=== PATIENT | female | born 1960 | race Caucasian/White ===

== ENCOUNTER 2017-12-13 09:46 | Emergency (ER) | payer BC ==
[~2017-12-13] VITALS: Ht 154.9 cm; Wt 83.0 kg
[2017-12-13] MEDS ORDERED: KETOROLAC TROMETHAMINE 30 MG/ML VIAL IV STA (10:00)
[2017-12-13] MEDS ORDERED: ONDANSETRON HCL INJ 2 MG/ML VIAL IV STA (10:00)
[2017-12-13] MEDS ORDERED: DICYCLOMINE HCL 20 MG/2 ML VIAL IM ONE (10:00)
[2017-12-13 10:39] LABS: BILIRUBIN,URINE NEGATIVE (NEGATIVE); KETONES,URINE NEGATIVE (NEGATIVE); LEUKOCYTE ESTERASE ,URINE NEGATIVE (NEGATIVE); NITRITE,URINE NEGATIVE (NEGATIVE); PROTEIN,URINE DIPSTICK NEGATIVE (NEGATIVE); URINE UROBILINOGEN 0.2 mg/dL (0.2 - 1)
[2017-12-13 10:40] LABS: CLARITY,URINE CLEAR (CLEAR); COLOR,URINE YELLOW (YELLOW)
--- NOTE | 2017-12-13 11:07 | Diagnostic Imaging Report ---
PROCEDURE: CT ABDOMEN AND PELVIS WITHOUT CONTRAST COMPARISON:None. INDICATIONS:Right flank pain TECHNIQUE: Stone protocol Volumetric CT abdomen and pelvis. No intravenous or enteric contrast. Multiplanar reformatted images. DLP: 774.77 FINDINGS: Clear lung bases. No pleural effusions. Normal heart size. Liver: The normal Gallbladder: Normal Pancreas: Normal Spleen: Normal Adrenal glands: Normal Urinary bladder: Normal Uterus and adnexa colon normal Kidneys and ureters: Right: 5 mm stone at the distal right ureter approximately 1 cm from the ureterovesicular junction. Resulting moderate hydronephrosis and perinephric inflammation. Left: Normal. Specifically, no stones. Bowel: Normal caliber. Peritoneum: Normal Vasculature: Moderate scattered atherosclerosis. Lymph nodes: Normal Skeleton: Intact. Degenerative disc disease predominantly at L4-L5 and L5-S1. Bilateral L5 pseudoarthrosis. Soft tissues: Normal CONCLUSION: 5 mm stone at the distal right ureter with accompanying moderate hydronephrosis. Dictated by: Georges Rebolledo M.D. on 12/13/2017 at 11:06 Electronically approved by: Georges Rebolledo M.D. on 12/13/2017 at 11:06
[2017-12-13 11:16] LABS: BACTERIA,URINE RARE /HPF; EPITHELIAL CELLS,URINE FEW /LPF; TRANSITIONAL EPI CELLS,URINE RARE
[2017-12-13 11:23] LABS: BASOPHILS % 0.3 % (0.0-1.0); EOSINOPHILS # (AUTO) 0.1 (0.0-0.4); HEMATOCRIT 37.7 % (34.2-44.1); HEMOGLOBIN 12.5 g/dL (12.0-16.0); LYMPHOCYTES # (AUTO) 1.3 (1.0-3.2); LYMPHOCYTES % 10.5 % (18.0-39.1); MEAN CORPUSCULAR HEMOGLOBIN 28.2 pg (28-32); MEAN CORPUSCULAR HGB CONC 33.2 g/dL (31-35); MEAN CORPUSCULAR VOLUME 84.9 fL (81-99); MONOCYTES # (AUTO) 0.7 (0.2-0.8); MONOCYTES % 5.5 % (4.4-11.3); NEUTROPHILS # (AUTO) 9.8 (2.1-6.9); NEUTROPHILS % 82.4 % (38.7-80.0); PLATELET COUNT 445 x10e3/uL (140-360); RED BLOOD COUNT 4.44 x10e6/uL (3.6-5.1); RED CELL DISTRIBUTION WIDTH 11.9 % (11.7-14.4)
[2017-12-13 11:36] LABS: ALBUMIN 4.2 g/dL (3.5-5.0); ALBUMIN/GLOBULIN RATIO 1.2 (0.8-2.0); CALCIUM 9.7 mg/dL (8.4-10.2); CREATININE, SERUM 1.2 mg/dL (0.57-1.11)
[2017-12-13 12:32] VITALS: BP 122/57
[2017-12-19] MEDS ORDERED: TRIAMTERENE-HCTZ1 EA PO (17:40)
[2017-12-19] MEDS ORDERED: FENOFIBRATE145 MG (17:40)
[2017-12-19] MEDS ORDERED: LOSARTAN POTAS100 MG PO (17:40)
[2017-12-19] MEDS ORDERED: ULTRAM50 MG PO (17:43)
[2017-12-19] MEDS ORDERED: METFORMIN HCL500 MG PO (17:43)
[2017-12-19] MEDS ORDERED: GABAPENTIN300 MG PO (17:43)
[2017-12-19] MEDS ORDERED: CYCLOBENZAPRINE10 MG PO (17:43)
[2017-12-19] MEDS ORDERED: ATORVASTATIN CA10 MG PO (17:43)
[2017-12-19] MEDS ORDERED: LEVOTHYROXINE50 MCG PO (17:43)
[2017-12-19] MEDS ORDERED: NORCO 7.5-3251 EACH PO (17:44)
== END 2017-12-13 12:44 | disposition home or self-care (01) ==
LOC: ER 09:46
DX: R10.9 Unspecified abdominal pain (principal); M54.9 Dorsalgia, unspecified; R11.0 Nausea; N13.2 Hydronephrosis with renal and ureteral calculous obstruction
CPT/HCPCS: 36415; 74176; 80053; 81001; 85025; 87086; 99284; J0500; J1885; J2405

== ENCOUNTER → 2017-12-23 | Day surgery (SDC) | payer BC ==
[2017-12-19 14:47] LABS: ANION GAP 15.6 mmol/L (8-16); CALCIUM 10.5 mg/dL (8.4-10.2); CREATININE, SERUM 1.14 mg/dL (0.57-1.11); POTASSIUM 3.6 mmol/L (3.5-5.1)
[~2017-12-23] MED LIST: ATORVASTATIN CA10 MG PO; CEFTRIAXONE SOD 1 GM VIAL ONE; CYCLOBENZAPRINE10 MG PO; DEXAMETHASONE SOD PHOS INJ 4 MG/ML VIAL ONE; FENOFIBRATE145 MG; FENTANYL CITRATE/PF 100MCG/2 ML INJ ONE; GABAPENTIN300 MG PO; IOPAMIDOL 610MG/1ML 300 MG/ML VIAL IV ONE; LEVOTHYROXINE50 MCG PO; LIDOCAINE HCL 2% LOCAL INJ 5 ML SDV VIAL INJ ONE; LOSARTAN POTAS100 MG PO; METFORMIN HCL500 MG PO; MIDAZOLAM HCL 2 MG/2 ML VIAL ONE; NORCO 7.5-3251 EACH PO; ONDANSETRON HCL INJ 2 MG/ML VIAL ONE; PROPOFOL IV EMULSION 10 MG/ML 20 ML VIAL ONE; SEVOFLURANE INHAL SOLN 250 ML PEN BTL ONE; TRIAMTERENE-HCTZ1 EA PO; ULTRAM50 MG PO
--- OUTSIDE RECORDS SUMMARY | 2017-12-23 07:38 | XMS REPORT ---
Author Author [facility] Address Unknown Phone Unavailable Care Team Providers Care Sharepoint Web Developer Name Role Phone HEBERT NASH Unavailable Unavailable Problems This patient has no known problems. Allergies, Adverse Reactions, Alerts This patient has no known allergies or adverse reactions. Medications This patient has no known medications. Results Test Description Test Time Test Comments Text Results Atomic Results Result Comments CT ABDOMEN/PELVIS WO [place] [address] Patient Name: CARI ROMERO MR #: [id number] : 1960 Age/Sex: 57/F Req #: [id number] Adm Physician: Ordered by: HEBERT NASH MD Report #: [id number] Location: ER Room/Bed: Procedure: [id number] CT/CT ABDOMEN/PELVIS WO Exam Date: 12/13/17 Exam Time: 1019 REPORT STATUS: Signed PROCEDURE: CT ABDOMEN AND PELVIS WITHOUT CONTRAST COMPARISON: None. INDICATIONS: Right flank pain TECHNIQUE: Stone protocol Volumetric CT abdomen and pelvis. No intravenous or enteric contrast. Multiplanar reformatted images. DLP: 774.77 FINDINGS: Clear lung bases. No pleural effusions. Normal heart size. Liver: The normal Gallbladder: Normal Pancreas: Normal Spleen: Normal Adrenal glands: Normal Urinary bladder: Normal Uterus and adnexa colon normal Kidneys and ureters: Right: 5 mm stone at the distal right ureter approximately 1 cm from the ureterovesicular junction. Resulting moderate hydronephrosis and perinephric inflammation. Left: Normal. Specifically, no stones. Bowel: Normal caliber. Peritoneum: Normal Vasculature: Moderate scattered atherosclerosis. Lymph nodes: Normal Skeleton: Intact. Degenerative disc disease predominantly at L4-L5 and L5-S1. Bilateral L5 pseudoarthrosis. Soft tissues: Normal CONCLUSION: 5 mm stone at the distal right ureter with accompanying moderate hydronephrosis. Dictated by: Susy Rebolledo M.D. on 12/13/2017 at 11:06 Electronically approved by: Susy Rebolledo M.D. on 12/13/2017 at 11:06 Dictated By: SUSY REBOLLEDO MD 1106 Transcribed By: DAVID on 1106 COPY TO: HEBERT NASH MD
--- OUTSIDE RECORDS SUMMARY | 2017-12-23 07:38 | XMS REPORT | Continuity of Care Document ---
Author Author [facility] Organization [facility] Address [address] [place] [address] Phone Unavailable Care Team Providers Care Interactive Project Manager Name Role Phone NONSTAFF PCP Unavailable Insurance Providers Guarantor NickCari Address [address] [place] [address] Email [email or web address] Policy Number [id number] Subscriber's Name Cari Romero Relationship 18 Self / Same As Patient Group Number [id number] Group Name [facility] Effective Date 08 Advance Directives Directive Response Recorded Date/Time Does the patient have an advance directive? No 12/31/09 12:37pm If yes, is advance directive on file with [facility]? No 12/31/09 12:37pm If not on file with [facility] will patient provide a copy? No 01/11/16 10:26am Problems No problem information available. Medications No medication information available. Social History Smoking Status Start Date Stop Date Never Smoker Hospital Discharge Instructions No hospital discharge instruction information available. Plan of Care Discharge Date 12/13/17 12:44pm Disposition HOME, SELF-CARE Condition at Discharge Stable Instructions/Education Provided Kidney Stones Forms Provided Work/School Excuse Prescriptions See Medication Section Referrals Desiree Hayes Order Date: Call for an appointment TIKI HENNING MD Order Date: Call for an appointment Address: [address] [place] [address] Additional Instructions/Education Take medication as prescribed Follow up with Dr. Henning in a couple of days Functional Status No functional status information available. Allergies, Adverse Reactions, Alerts Allergen Type Severity Reaction Status Last Updated Sulfa (Sulfonamide Antibiotics) Allergy Mild Active 12/31/09 Immunizations No immunization information available. Vital Signs Acute Vital Signs Vital Response Date/Time Pulse Pulse Rate (adult) 80 bpm (60 - 90) 12/13/2017 12:32pm Respiratory Rate 18 bpm (12 - 24) 12/13/2017 12:32pm Blood Pressure 122/57 mm Hg 12/13/2017 12:32pm Height 5 ft 1 in 12/13/2017 9:51am Weight 183 lb 12/13/2017 9:51am Body Mass Index 34.6 kg/m^2 12/13/2017 9:51am Results Laboratory Results Test Name Result Units Flags Reference Collection Date/Time Result Date/ Time Comments White Blood Count 11.95 x10e3/uL H 4.8-10.8 12/13/2017 10:40am 2017 11:28am Red Blood Count 4.44 x10e6/uL 3.6-5.1 12/13/2017 10:40am 12/13/2017 11: 28am Hemoglobin 12.5 g/dL 12.0-16.0 12/13/2017 10:40am 12/13/2017 11:28am Hematocrit 37.7 % 34.2-44.1 12/13/2017 10:40am 12/13/2017 11:28am Mean Corpuscular Volume 84.9 fL 81-99 12/13/2017 10:40am 12/13/2017 11: 28am Mean Corpuscular Hemoglobin 28.2 pg 28-32 12/13/2017 10:40am 2017 11:28am Mean Corpuscular Hemoglobin Concent 33.2 g/dL 31-35 12/13/2017 10:40am 12/13/2017 11:28am Red Cell Distribution Width 11.9 % 11.7-14.4 12/13/2017 10:40am 2017 11:28am Platelet Count 445 x10e3/uL H 140-360 12/13/2017 10:40am 12/13/2017 11: 28am Neutrophils (%) (Auto) 82.4 % H 38.7-80.0 12/13/2017 10:40am 12/13/2017 11:28am Lymphocytes (%) (Auto) 10.5 % L 18.0-39.1 12/13/2017 10:40am 12/13/2017 11:28am Monocytes (%) (Auto) 5.5 % 4.4-11.3 12/13/2017 10:40am 12/13/2017 11: 28am Eosinophils (%) (Auto) 1.0 % 0.0-6.0 12/13/2017 10:40am 12/13/2017 11: 28am Basophils (%) (Auto) 0.3 % 0.0-1.0 12/13/2017 10:40am 12/13/2017 11: 28am IM GRANULOCYTES % 0.3 % 0.0-1.0 12/13/2017 10:40am 12/13/2017 11:28am Neutrophils # (Auto) 9.8 H 2.1-6.9 12/13/2017 10:40am 12/13/2017 11: 28am Lymphocytes # (Auto) 1.3 1.0-3.2 12/13/2017 10:40am 12/13/2017 11: 28am Monocytes # (Auto) 0.7 0.2-0.8 12/13/2017 10:40am 12/13/2017 11:28am Eosinophils # (Auto) 0.1 0.0-0.4 12/13/2017 10:40am 12/13/2017 11: 28am Basophils # (Auto) 0.0 0.0-0.1 12/13/2017 10:40am 12/13/2017 11:28am Absolute Immature Granulocyte (auto 0.03 x10e3/uL 0-0.1 12/13/2017 10: 40am 12/13/2017 11:28am Urine Color YELLOW YELLOW 12/13/2017 9:56am 12/13/2017 10:40am Urine Clarity CLEAR CLEAR 12/13/2017 9:56am 12/13/2017 10:40am Urine Specific [place] 1.015 1.010-1.025 12/13/2017 9:56am 2017 10:40am Urine pH 7 5 - 7 12/13/2017 9:56am 12/13/2017 10:40am Urine Leukocyte Esterase NEGATIVE NEGATIVE 12/13/2017 9:56am 2017 10:40am Urine Nitrite NEGATIVE NEGATIVE 12/13/2017 9:56am 12/13/2017 10:40am Urine Protein NEGATIVE NEGATIVE 12/13/2017 9:56am 12/13/2017 10:40am Urine Glucose (UA) TRACE H NEGATIVE 12/13/2017 9:56am 12/13/2017 10: 40am Urine Ketones NEGATIVE NEGATIVE 12/13/2017 9:56am 12/13/2017 10:40am Urine Urobilinogen 0.2 mg/dL 0.2 - 1 12/13/2017 9:56am 12/13/2017 10: 40am Urine Bilirubin NEGATIVE NEGATIVE 12/13/2017 9:56am 12/13/2017 10: 40am Urine Blood 1+ H NEGATIVE 12/13/2017 9:56am 12/13/2017 10:40am Urine WBC NONE /HPF 0-5 12/13/2017 9:56am 12/13/2017 11:17am Urine RBC 6-10 /HPF H 0-5 12/13/2017 9:56am 12/13/2017 11:17am Urine Bacteria RARE /HPF NONE 12/13/2017 9:56am 12/13/2017 11:17am Urine Epithelial Cells FEW /LPF NONE 12/13/2017 9:56am 12/13/2017 11: 17am Urine Transitional Epithelial Cells RARE H NONE 12/13/2017 9:56am 11:17am Sodium Level 137 mmol/L 136-145 12/13/2017 10:40am 12/13/2017 11:43am Potassium Level 4.0 mmol/L 3.5-5.1 12/13/2017 10:40am 12/13/2017 11: 43am Chloride Level 101 mmol/L 98-107 12/13/2017 10:40am 12/13/2017 11:43am Carbon Dioxide Level 26 mmol/L 12/13/2017 10:40am 12/13/2017 11: 43am Anion Gap 14.0 mmol/L -12/13/2017 10:40am 12/13/2017 11:43am Blood Urea Nitrogen 19 mg/dL 05-2212/13/2017 10:40am 12/13/2017 11: 43am Creatinine 1.20 mg/dL H 0.57-1.11 12/13/2017 10:40am 12/13/2017 11:43am BUN/Creatinine Ratio 16 6-25 12/13/2017 10:40am 12/13/2017 11:43am Estimat Glomerular Filtration Rate 46 ML/MIN L 60- 12/13/2017 10:40am 11:43am Ranges were taken from the National Kidney Disease Education Program and the National Kidney Foundation literature. Reference ranges: 60 or greater: Normal 16-59 (for 3 consecutive months): Chronic kidney disease 15 or less: Kidney failure Glucose Level 186 mg/dL H 74-118 12/13/2017 10:40am 12/13/2017 11:43am Calcium Level 9.7 mg/dL 8.4-10.2 12/13/2017 10:40am 12/13/2017 11:43am Total Bilirubin 0.4 mg/dL 0.2-1.2 12/13/2017 10:40am 12/13/2017 11: 43am Aspartate Amino Transf (AST/SGOT) 17 IU/L 5-34 12/13/2017 10:40am 12/13 11:43am Alanine Aminotransferase (ALT/SGPT) 17 IU/L 0-55 12/13/2017 10:40am 11:43am Total Protein 7.8 g/dL 6.5-8.1 12/13/2017 10:40am 12/13/2017 11:43am Albumin 4.2 g/dL 3.5-5.0 12/13/2017 10:40am 12/13/2017 11:43am Globulin 3.6 g/dL H 2.3-3.5 12/13/2017 10:40am 12/13/2017 11:43am Albumin/Globulin Ratio 1.2 0.8-2.0 12/13/2017 10:40am 12/13/2017 11: 43am Alkaline Phosphatase 66 IU/L 40-150 12/13/2017 10:40am 12/13/2017 11: 43am Procedures Procedure Status Date Provider(s) CT of abdomen and pelvis without contrast Active 12/13/17 HEBERT NASH MD Encounters Encounter Location Arrival/Admit Date Discharge/Depart Date Attending Provider Departed Emergency Room [facility] 12/13/17 9:46am 12:44pm HEBERT NASH MD
--- NOTE | 2017-12-23 07:55 | Operative Report ---
DATE OF PROCEDURE: December 23, 2017 PREOPERATIVE DIAGNOSES 1. Right ureteral calculus. 2. Microscopic hematuria. 3. Hydronephrosis. POSTOPERATIVE DIAGNOSES 1. Right ureteral calculus. 2. Microscopic hematuria. 3. Hydronephrosis. PROCEDURES 1. Cystourethroscopy with left ureteral catheterization and left retrograde pyelogram (separate procedure for diagnosis of microscopic hematuria). 2. Right-sided ureteroscopy with laser lithotripsy and stent placement (separate procedure for the diagnosis of right ureteral calculus). 3. Right-sided ureteroscopy with stone extraction (entirely separate procedure with the explicit purposes of sending the stone for analysis not required for laser lithotripsy). 4. Supervision of fluoroscopy during both stent placement portion, the ureteroscopic dilation of the ureter portion, and the retrograde pyelograms. 5. Interpretation of retrograde ureteropyelography. ANESTHESIA: General. ESTIMATED BLOOD LOSS: Minimal. COMPLICATIONS: None. INDICATIONS FOR PROCEDURE: Ms. Sumner is a very pleasant female who has failed a trial of passage and a symptomatic right kidney stone. She and I had a long discussion about alternatives, risks and benefits including doing nothing, shockwave lithotripsy, ureteroscopy, percutaneous nephrostomy tube insertion. She voiced understanding of the options, alternatives, risks and benefits and she elected to proceed. PROCEDURE IN DETAIL: After informed consent was obtained, the patient was taken to the operative suite and placed supine on the operating table and underwent general anesthesia by the anesthesia service. She was then placed in the dorsal lithotomy position and sterilely prepped and draped in the standard fashion for cystoscopy. A 22.5-Cuban cystoscope was inserted per urethra where a normal urethra was noted. It passed to the bladder. No tumors and no stones. Both ureteral orifices were catheterized with a 5-Cuban open-ended catheter. The left was normal. The right revealed a distal 6 x 6 mm ureteral calculus and proximal hydronephrosis. A guidewire was inserted proximally. The ureter was dilated under fluoroscopy. The ureteroscope was then driven to the level of the offending stone. Utilizing 365 micron fiber, the stone was retrieved in 3 separate fragments. These fragments were basket extracted and passed off the table as a totally separate procedure with explicit purposes of sending these stones for analysis. This was not required for simple laser lithotripsy. At this time with the hydronephrosis, a 6 x 24 ureteral stent was deployed with a coil in the renal pelvis and a coil in the patient's bladder. The string was left, which was tied outside the meatus. The bladder was drained. The patient was awakened from anesthesia and transported to the recovery room in excellent condition. SUPERVISION OF FLUOROSCOPY, INTERPRETATION OF RETROGRADE URETERAL PYELOGRAPHY: I was present throughout the entire procedure and I supervised the use of fluoroscopy. There was no radiologist present at any time during this procedure. Attention was turned toward the left and right ureteral orifices, catheterized with a 5-Cuban cone-tipped catheter. Retrograde pyelogram was performed. The left was normal. The right revealed a distal 6 x 6 mm calculus with proximal hydronephrosis and a ureteral stent in good position. Job#: [id number] DARIUS DEGROOT
== END | disposition home or self-care (01) ==
LOC: OR 07:36
PROVIDERS: ATTEND Urology
DX: N13.2 Hydronephrosis with renal and ureteral calculous obstruction (principal); I10 Essential (primary) hypertension; E78.5 Hyperlipidemia, unspecified; E11.9 Type 2 diabetes mellitus without complications; E03.9 Hypothyroidism, unspecified; K21.9 Gastro-esophageal reflux disease without esophagitis; Z01.810 Encounter for preprocedural cardiovascular examination; Z01.812 Encounter for preprocedural laboratory examination; Z79.82 Long term (current) use of aspirin; Z68.33 Body mass index [BMI] 33.0-33.9, adult; Z87.891 Personal history of nicotine dependence; Z84.1 Family history of disorders of kidney and ureter
CPT/HCPCS: 36415 ×2; 52356; 74420; 80048; 82948; 88300; 93005; C2617; J0696; J1100; J2001; J2250; J2405; Q9967

== ENCOUNTER → 2018-04-04 | Outpatient (CLI) | payer BC ==
[~2018-04-04] MED LIST changes: -CEFTRIAXONE SOD 1 GM VIAL ONE; -DEXAMETHASONE SOD PHOS INJ 4 MG/ML VIAL ONE; -FENTANYL CITRATE/PF 100MCG/2 ML INJ ONE; -IOPAMIDOL 610MG/1ML 300 MG/ML VIAL IV ONE; -LIDOCAINE HCL 2% LOCAL INJ 5 ML SDV VIAL INJ ONE; -MIDAZOLAM HCL 2 MG/2 ML VIAL ONE; -ONDANSETRON HCL INJ 2 MG/ML VIAL ONE; -PROPOFOL IV EMULSION 10 MG/ML 20 ML VIAL ONE; -SEVOFLURANE INHAL SOLN 250 ML PEN BTL ONE
--- NOTE | 2018-04-04 13:36 | Diagnostic Imaging Report ---
PROCEDURE:X-RAY ABDOMEN - KUB COMPARISON:CT the abdomen and pelvis from 12/13/2017 INDICATIONS:HISTORY OF URINARY CALCULI FINDINGS: No dilated loops of bowel or abnormal air-fluid levels patterns. Visualized portions of the lung bases are clear. No definite calcifications are seen overlying the urinary system. Five non-rib bearing lumbar type vertebral bodies identified. CONCLUSION: No definite urinary calcifications are identified. Dictated by: Kwaku Carrillo M.D. on 04/04/2018 at 13:39 Electronically approved by: Kwaku Carrillo M.D. on 04/04/2018 at 13:39
== END ==
LOC: RAD 12:49
PROVIDERS: ATTEND Urology
DX: Z87.442 Personal history of urinary calculi (principal)
CPT/HCPCS: 74018

== ENCOUNTER → 2018-10-27 | Outpatient (CLI) | payer BC ==
--- NOTE | 2018-10-27 10:13 | Diagnostic Imaging Report ---
EXAMINATION: ABDOMEN-1VIEW (KUB) INDICATION: Renal calculus COMPARISON: KUB 04/04/18. FINDINGS: There is a nonobstructive bowel gas pattern. No definite urinary calcifications. Degenerative changes of the lower lumbar spine. No acute osseous abnormality. IMPRESSION: No radiographic evidence of urinary stone. Signed by: Dr. Monica Barber MD on 10/27/2018 10:09 AM
== END ==
LOC: RAD 09:42
PROVIDERS: ATTEND Urology
DX: N20.0 Calculus of kidney (principal)
CPT/HCPCS: 74018

== ENCOUNTER → 2019-09-10 | Outpatient (CLI) | payer BC ==
--- NOTE | 2019-09-10 09:13 | Diagnostic Imaging Report ---
Exam: KUB - 2 views Indication: Renal calculus Comparison: KUB of 10/27/2018 Findings: No radiographically apparent renal calculi. Nonobstructive bowel gas pattern. No free air. The osseous structures appear unremarkable. Impression: No radiographically apparent renal calculi. Signed by: Aggie Ortega MD on 09/10/2019 9:10 AM
== END ==
LOC: RAD 08:15
PROVIDERS: ATTEND Urology
DX: N20.0 Calculus of kidney (principal)
CPT/HCPCS: 74018

== ENCOUNTER → 2025-04-05 | Day surgery (SDC) | payer BC ==
[2025-03-26 13:28] LABS: BASOPHILS % 0.1 % (0.0-1.0); EOSINOPHILS # (AUTO) 0.4 (0.0-0.4); EOSINOPHILS % 0.6 % (0.0-6.0); HEMATOCRIT 41.6 % (34.2-44.1); HEMOGLOBIN 13.9 g/dL (12.0-16.0); LYMPHOCYTES # (AUTO) 64.6 (1.0-3.2); LYMPHOCYTES % 92.6 % (18.0-39.1); MEAN CORPUSCULAR HEMOGLOBIN 29.8 pg (28-32); MEAN CORPUSCULAR HGB CONC 33.4 g/dL (31-35); MEAN CORPUSCULAR VOLUME 89.1 fL (81-99); MONOCYTES # (AUTO) 0.4 (0.2-0.8); MONOCYTES % 0.6 % (4.4-11.3); NEUTROPHILS # (AUTO) 4.2 (2.1-6.9); PLATELET COUNT 362 x10e3/uL (140-360); RED BLOOD COUNT 4.67 x10e6/uL (3.6-5.1); RED CELL DISTRIBUTION WIDTH 12.6 % (11.7-14.4)
[2025-03-26 13:31] LABS: WHITE BLOOD COUNT 69.76 x10e3/uL (4.8-10.8)
[2025-03-26 14:03] LABS: ANION GAP 16.3 mmol/L (8-16); CALCIUM 10.7 mg/dL (8.4-10.2); CREATININE, SERUM 0.82 mg/dL (0.57-1.11); POTASSIUM 4.3 mmol/L (3.5-5.1)
[2025-03-26 14:33] LABS: LYMPHOCYTES % (MANUAL) 88 % (19-48); MONOCYTES % (MANUAL) 2 % (3.4-9.0); NEUTROPHILS % (MANUAL) 10 % (40-74); PLATELET ESTIMATE ADEQUATE; PLATELET MORPHOLOGY COMMENT NORMAL; RBC MORPHOLOGY COMMENT NORMAL
[~2025-04-05] MED LIST changes: +ACETAMINOPHEN 1000 MG/100 ML 100 ML IV ONE; +ATORVASTATIN CA80 MG PO; +B COMPLEX1 EACH PO; +BEET ROOT500 MG PO; +BUPIVACAINE LIPOSOME/PF 266 MG/20 ML IJ ONE; +DEXAMETHASONE SOD PHOS INJ 4 MG/ML SDV ONE; +FAMOTIDINE 20 MG/2 ML VIAL IV ONE; +FARXIGA5 MG PO; +FENTANYL CITRATE/PF 100MCG/2 ML INJ ONE; +GARLIC OIL1000 MG PO; +HYDROCHLOROTHIA25 MG PO; +LIDOCAINE HCL 2% LOCAL INJ 5 ML SDV VIAL INJ ONE; +MAGNESIUM400 MG PO; +MIDAZOLAM HCL 2 MG/2 ML VIAL ONE; +ONDANSETRON HCL INJ 2MG/ML 2ML 2 MG/ML VIAL ONE; +OZEMPIC2 MG/0.75 SQ; +PHENYLEPHRINE HCL 1% 10 MG/ML VIAL ONE; +PROPOFOL IV EMULSION 10 MG/ML 20 ML VIAL ONE; +ROCURONIUM BROMIDE 1 ML IV ONE; +SEVOFLURANE INHAL SOLN 250 ML PEN BTL ONE; +SODIUM CHLORIDE 0.9% 100 ML ONE; +SUGAMMADEX SODIUM 200 MG/2 ML VIAL IV ONE
[2025-04-05] MEDS: LACTATED RINGER'S 1,000 ML ONE (12:54)
[2025-04-05 16:06] VITALS: TEMP 97.5
[2025-04-05 16:55] VITALS: BP 142/69; PULSE 78; RESP 16; O2SAT 96
== END | disposition home or self-care (01) ==
LOC: OR 12:11
PROVIDERS: ATTEND Specialist
DX: S46.012A Strain of muscle(s) and tendon(s) of the rotator cuff of left shoulder, initial encounter (principal); M75.22 Bicipital tendinitis, left shoulder; M65.912 Unspecified synovitis and tenosynovitis, left shoulder; E11.9 Type 2 diabetes mellitus without complications; I10 Essential (primary) hypertension; E03.9 Hypothyroidism, unspecified; X58.XXXA Exposure to other specified factors, initial encounter; Z88.2 Allergy status to sulfonamides; Z91.048 Other nonmedicinal substance allergy status; Z01.810 Encounter for preprocedural cardiovascular examination; Z01.812 Encounter for preprocedural laboratory examination; Z79.84 Long term (current) use of oral hypoglycemic drugs; Z79.85 Long-term (current) use of injectable non-insulin antidiabetic drugs; Z79.899 Other long term (current) drug therapy; Z68.31 Body mass index [BMI] 31.0-31.9, adult; Z87.891 Personal history of nicotine dependence
CPT/HCPCS: 29827; 36415 ×2; 80048; 82948; 85025; 93005; C1713; J0131; J0666; J0690; J1100; J1308; J2003; J2371; J2405; J2704; J3010; J7050; J7121; J2250